=== PATIENT | female | born 1990 | race Caucasian/White ===

== ENCOUNTER 2019-02-28 12:54 | Inpatient (IN) ==
--- NOTE | 2019-02-28 13:03 | DR.GENAD ---
HPI Time Seen Time Seen by Provider: 02/28/19 13:02 HPI Comment HPI Comment: PATIENT IS 28YR OLD FEMALE [facility] HISTORY OF DM AND HYPERTENSION IN ER WITH INCREASING TACHYPNEA, TACHYCARDIA AND ELEVATED BLOOD PRESSURE. BLOOD GLUCOSE WAS HIGH AT HOME. SHE IS HAVING HEADACHE AND CHEST PAIN WELL. MOUTH IS DRY AND SHE IS THIRST. HAVING POLYURIA WELL. RECENTLY TESTED POSITIVE FOR LYMES DISEASE ANS WAS TREATED. Complaint/Symptoms Chief Complaint Doctors Comments: INCREASING RAPID BREATHING AND ELEVATED BP TIMES 2 DAYS. Chief Complaint:: PATIENT IS 28YR OLD FEMALE WITH Nurses notes reviewed Nurses Notes Review: Yes Source History Provided: Patient and Family Member Mode of Arrival Mode of Arrival: EMS Timing Came on: Suddenly Duration Duration: Constant Duration: Days Severity Severity: Severe Modifying Factors Worsens:: EXERTION Improves:: REST. Associated Signs and Symptoms Associated Signs and Symptoms: VOMITING. Other History Other History: DM, HTN. PMH PMH Past Medical History: Diabetes Past Surgical History: Yes Surgical History: and Cholecystectomy Family History Family Medical History: Hypertension Social History Do you use any recreational Drugs:: No infectious screening Isolation: Standard ROS Review of Systems Constitutional: No Symptoms Reported, See HPI, Weakness and Fatigue; negative Fever and Loss of Appetite Eyes: No Symptoms Reported and See HPI ENTM: No Symptoms Reported and See HPI Respiratoy: Short of Breath and Other (TACKYPNEA.) Cardiovascular: See HPI, Chest Pain and Palpitations Gastrointestinal/Abdominal: See HPI and Vomiting Genitourinary: No Symptoms Reported Neurological: See HPI, Headache, Weakness and Dizziness Musculoskeletal: See HPI and Muscle Pain Integumentary: See HPI, Change in Color and Dryness Hematologic/Lymphatic: No Symptoms Reported and See HPI; negative Easy Bleeding, Easy Bruising and Swollen Glands Endocrine: See HPI, Increased Thirst, Increased Urine and Decreased Appetite Psychiatric: No Symptoms Reported and See HPI All Other Systems: Reviewed and Negative PE Vital Signs Vitals: Temperature 97.2 F Pulse Rate 155 Respiratory Rate 30 Blood Pressure [Left Arm] 135/89 Blood Pressure 168/98 O2 Sat by Pulse Oximetry 100 General Limitations: No Limitations General Appearance: Alert and In Distress Head Head Exam: Normal Inspection and Atraumatic Eyes Eye exam: Normal Appearance and PERRL; negative Scleral Icterus and Conjunctival Injection ENT ENT Exam: Normal Exam; negative Normal Oropharynx, Normal External Ear Exam and TM's Normal Bilaterally External Ear Exam: Normal External Inspection; negative Mastoid Tenderness TM/Canal Exam: Bilateral: Normal Nose Exam: Normal Nose Exam Mouth Exam: Normal Inspection Throat Exam: Normal Inspection Neck Neck Exam: Normal Inspection and Trachea Midline; negative Tenderness and Lymphadenopathy Chest Chest Inspection: Normal Inspection and Symmetric Chest Wall Rise; negative Tenderness Respiratory Respiratory Exam: Normal Lung Sounds Bilat and Other (TACKYPNEA.); negative Accessory Muscle Use and Chest Wall Tenderness Respiratory Exam: Bilateral: Clear to Auscultation Abdominal Exam Abdominal Exam: Normal Inspection, Normal Bowel Sounds and Soft; negative Tender ness Extremities Extremities Exam: Normal Inspection Back Back Exam: Normal Inspection Neurologic Neurological Exam: Alert, Oriented X3 and CN II-XII Intact; negative Motor Sensory Deficit Skin Skin Exam: Dry MDM Additional Information Additional Information Obtained From: Family Differential Diagnosis Differential Diagnosis: DKA, HYPERTENSION. SEVERE DEHYDRATION, ELECTROLYTE DISTURBANCES, SEPSIS. COURSE Treatment Treatment: SEE ORDERS. Education/Counseling Education/Counseling: Patient and Family Educated On: Diagnosis ROR Labs Reviewed Laboratory Results Reviewed?: Yes Result Diagrams: 03/02/19 05:32 03/02/19 05:32 Laboratory: 02/28/19 16:14 Urine,Catheterized Urine Culture - Final 02/28/19 14:07 Blood Blood Culture - Preliminary 02/28/19 13:10 Blood Blood Culture - Preliminary WBC 18.7 X10^3/uL (3.6-10.0) H 02/28/19 13:10 RBC 5.78 X10^6/uL (3.5-5.4) H 02/28/19 13:10 Hgb 16.7 g/dL (12.0-16.0) H 02/28/19 13:10 Hct 53.3 % (36.0-47.0) H 02/28/19 13:10 MCV 92.2 fL (80.0-100.0) 02/28/19 13:10 MCH 28.9 pg (27.0-34.0) 02/28/19 13:10 MCHC 31.3 g/dL (33.0-35.0) L 02/28/19 13:10 RDW 15.1 % (11.6-16.5) 02/28/19 13:10 Plt Count 525 X10^3/uL (150.0-450.0) H 02/28/19 13:10 MPV 9.4 fL (7.4-11.0) 02/28/19 13:10 Neut % (Auto) 80.2 % (42.0-75.0) H 02/28/19 13:10 Lymph % (Auto) 14.5 % (21.0-51.0) L 02/28/19 13:10 [facility] % (Auto) 4.8 % (0.0-13.0) 02/28/19 13:10 Eos % (Auto) 0.1 % (0.9-2.9) L 02/28/19 13:10 Baso % (Auto) 0.4 % (0.2-1.0) 02/28/19 13:10 Neut # (Auto) 15.0 x10^3/uL (2.2-4.8) H 02/28/19 13:10 Lymph # (Auto) 2.7 X10^3/uL (1.3-2.9) 02/28/19 13:10 [facility] # (Auto) 0.9 x10^3/uL (0.3-0.8) H 02/28/19 13:10 Eos # (Auto) 0.0 x10^3/uL (0.0-0.2) 02/28/19 13:10 Baso # (Auto) 0.1 X10^3/uL (0.0-0.1) 02/28/19 13:10 Absolute Nucleated RBC 0.1 /100WBC 02/28/19 13:10 Sample Site Rra 02/28/19 21:45 ABG pH 7.160 (7.35-7.45) L* 02/28/19 21:45 ABG pCO2 8.0 mmHg (35.0-45.0) L* 02/28/19 21:45 ABG pO2 334.0 mmHg (80.0-100.0) H 02/28/19 21:45 ABG HCO3 < 3.0 mmol/L (22-26) L* 02/28/19 21:45 ABG O2 Saturation Not Reportable 02/28/19 21:45 ABG Base Excess Not Reportable 02/28/19 21:45 Sigifredo Test Pos 02/28/19 21:45 A-a Gradient 369.0 mmHg 02/28/19 21:45 FiO2 100.0 02/28/19 21:45 Blood Gas Comments Tolerated well pmt 02/28/19 21:45 Sodium 137 mmol/L (136-145) 02/28/19 16:36 Corrected Sodium 145 mmol/L (136-145) 02/28/19 16:36 Potassium 4.3 mmol/L (3.5-5.1) 02/28/19 16:36 Chloride 102 mmol/L (98-107) 02/28/19 16:36 Carbon Dioxide 7.0 mmol/L (21-32) L* 02/28/19 16:36 BUN 15 mg/dL (7-18) 02/28/19 16:36 Creatinine 1.04 mg/dL (0.55-1.02) H 02/28/19 16:36 Est GFR (MDRD) Af Amer > 60 (>60) 02/28/19 16:36 Est GFR (MDRD) Non-Af > 60 (>60) 02/28/19 16:36 Glucose 446 mg/dL (65-99) H 02/28/19 16:36 POC Glucose (mg/dL) 178 mg/dL (65-99) H 02/28/19 20:34 Lactic Acid 3.8 mmol/L (0.4-2.0) H 02/28/19 13:10 Calcium 8.6 mg/dL (8.5-10.1) 02/28/19 16:36 Corrected Calcium TNP 02/28/19 13:10 Total Bilirubin 0.30 mg/dL (0.2-1.0) 02/28/19 13:10 AST 18 Units/L (15-37) 02/28/19 13:10 ALT 25 Units/L (12-78) 02/28/19 13:10 Alkaline Phosphatase 153 Units/L (46-116) H 02/28/19 13:10 Creatine Kinase 48 Units/L (26-192) 02/28/19 13:10 CK-MB (CK-2) < 1.0 ng/mL (0-4.0) 02/28/19 13:10 CK/CKMB % Calc 2.1 % (<4) 02/28/19 13:10 Troponin I < 0.02 ng/mL (0-1.5) 02/28/19 13:10 Total Protein 10.1 g/dL (6.4-8.2) H 02/28/19 13:10 Albumin 4.7 g/dL (3.4-5.0) 02/28/19 13:10 Globulin 5.4 g/dL (2.5-4.5) H 02/28/19 13:10 Albumin/Globulin Ratio 0.9 Ratio (1.1-2.1) L 02/28/19 13:10 Specimen Type Random urine 02/28/19 14:49 Urine Color Yellow (YELLOW) 02/28/19 14:49 Urine Appearance Clear (CLEAR) 02/28/19 14:49 Urine pH 5.0 (5.0 - 8.0) 02/28/19 14:49 Ur Specific [place] 1.025 (1.000-1.030) 02/28/19 14:49 Urine Protein 3+ (NEGATIVE) 02/28/19 14:49 Urine Glucose (UA) 4+ (NEGATIVE) 02/28/19 14:49 Urine Ketones 4+ (NEGATIVE) 02/28/19 14:49 Urine Occult Blood 1+ (NEGATIVE) 02/28/19 14:49 Urine Nitrite Negative (NEGATIVE) 02/28/19 14:49 Urine Bilirubin Negative (NEGATIVE) 02/28/19 14:49 Urine Urobilinogen Normal (NORMAL) 02/28/19 14:49 Ur Leukocyte Esterase Negative (NEGATIVE) 02/28/19 14:49 Urine RBC 0-2 /HPF (0-3) 02/28/19 14:49 Urine WBC 0-2 /HPF (0-5) 02/28/19 14:49 Ur Squamous Epith Cells Few /HPF (NEGATIVE) 02/28/19 14:49 Urine Bacteria Trace /HPF (NEGATIVE) 02/28/19 14:49 Granular Casts Few /LPF (NEGATIVE) 02/28/19 14:49 Urine Mucus Few /HPF (NEGATIVE) 02/28/19 14:49 Ur Culture Indicated? No/not indicated 02/28/19 14:49 Acetone, Semi-Quant Small (NEGATIVE) H 02/28/19 13:10 XRAY XRAY Interpreted by: Radiologist XRAY Findings: REPORT NOTED AND DISCUSSED WITH PATIENT AND FAMILY. Opioid Opioid Risk Tool Total: 0 Total Score Risk Category: Low Risk Copyright: [facility] predicting aberrant behaviors Diagnosis Discharge Problem: Acidosis, Hypocapnia, Low bicarbonate level DKA (diabetic ketoacidoses) Qualifiers: Diabetes mellitus type: type 1 Diabetes mellitus complication detail: without coma Qualified Code(s): E10.10 - Type 1 diabetes mellitus with ketoacidosis without coma Hypertension Qualifiers: Hypertension type: essential hypertension Qualified Code(s): I10 - Essential (primary) hypertension ADDITIONAL NOTES Additional Notes Additional Notes: PATIENT IN DKA WITH SEVERE METABOLIC ACIDOSIS. BICARB LESS THAN 3 BY ABG AND PH LESS THAN 7.15. PATIENT IS ALERT AND ORIENTED. CONCERN EARLY SHOCK WITH VASOCONTRICTION. IV BICARB AND IV FLUIDS AND CHECKH ABG AND BICARB. CONTINUE MONITORING IN ER FOR SEVERAL HOURS TILL PH IMPROVED. PATIENT THEN TAKEN TO ICU FOR FURTHER MANAGEMENT.
[2019-02-28] MEDS ORDERED: ZOFRAN INJ 4 MG VIAL ONE (13:05)
[2019-02-28] MEDS ORDERED: ZOFRAN INJ 4 MG VIAL IVP ONE (13:05)
[2019-02-28] MEDS ORDERED: NS 1000 ML 1,000 ML ONE ×6 (13:16→21:00)
[2019-02-28 13:19] LABS: ABG HCO3 < 3.0 mmol/L (22-26)
[2019-02-28] MEDS: NS 1000 ML 1,000 ML IV ONE ×2 (13:27→14:54)
[2019-02-28 13:32] VITALS: BMI 36.1
[2019-02-28] MEDS ORDERED: SODIUM BICARBONATE 8.4% INJ ADULT IVP ONE ×7 (13:41→20:15)
[2019-02-28] MEDS ORDERED: SODIUM BICARBONATE 8.4% INJ ADULT ONE ×5 (13:47→21:39)
[2019-02-28 14:04] LABS: BASOPHILS # (AUTO) 0.1 X10^3/uL (0.0-0.1); BASOPHILS % (AUTO) 0.4 % (0.2-1.0); EOSINOPHILS % (AUTO) 0.1 % (0.9-2.9); HEMATOCRIT 53.3 % (36.0-47.0); LYMPHOCYTES # (AUTO) 2.7 X10^3/uL (1.3-2.9); LYMPHOCYTES % (AUTO) 14.5 % (21.0-51.0); MEAN CORPUSCULAR HEMOGLOBIN 28.9 pg (27.0-34.0); MEAN CORPUSCULAR HGB CONC 31.3 g/dL (33.0-35.0); MEAN CORPUSCULAR VOLUME 92.2 fL (80.0-100.0); MEAN PLATELET VOLUME 9.4 fL (7.4-11.0); MONOCYTES # (AUTO) 0.9 x10^3/uL (0.3-0.8); MONOCYTES % (AUTO) 4.8 % (0.0-13.0); NEUTROPHILS % (AUTO) 80.2 % (42.0-75.0); PLATELET COUNT 525 X10^3/uL (150.0-450.0); RED BLOOD COUNT 5.78 X10^6/uL (3.5-5.4); RED CELL DISTRIBUTION WIDTH 15.1 % (11.6-16.5); WHITE BLOOD COUNT 18.7 X10^3/uL (3.6-10.0)
[2019-02-28 14:20] LABS: HEMOGLOBIN 16.7 g/dL (12.0-16.0)
[2019-02-28 14:24] LABS: LACTIC ACID 3.8 mmol/L (0.4-2.0)
[2019-02-28 14:30] LABS: ALANINE AMINOTRANSFERASE 25 Units/L (12-78); ALBUMIN 4.7 g/dL (3.4-5.0); ALKALINE PHOSPHATASE 153 Units/L (46-116); ASPARTATE AMINO TRANSFERASE 18 Units/L (15-37); BLOOD UREA NITROGEN 16 mg/dL (7-18); CALCIUM 9.2 mg/dL (8.5-10.1); CHLORIDE 94 mmol/L (98-107); CKMB % 2.1 % (<4); COR NA(FOR HYPERGLY) 140 mmol/L (136-145); CREATINE KINASE 48 Units/L (26-192); CREATINE KINASE MB < 1.0 ng/mL (0-4.0); CREATININE 1.33 mg/dL (0.55-1.02); SODIUM 130 mmol/L (136-145); TOTAL PROTEIN 10.1 g/dL (6.4-8.2); TROPONIN I < 0.02 ng/mL (0-1.5); eGFR NON BLACK RACES 51 (>60)
[2019-02-28 14:37] LABS: SERUM ACETONE SMALL (NEGATIVE)
[2019-02-28] MEDS ORDERED: NS 1000 ML 1,000 ML IV ONE ×2 (14:55→18:01)
[2019-02-28 15:05] LABS: BILIRUBIN,URINE NEGATIVE (NEGATIVE); BLOOD/HEMOGLOBIN,URINE 1+ (NEGATIVE); GLUCOSE, URINE 4+ (NEGATIVE); KETONES,URINE 4+ (NEGATIVE); LEUKOCYTE ESTERASE ,URINE NEGATIVE (NEGATIVE); NITRITES,URINE NEGATIVE (NEGATIVE); PROTEIN,URINE 3+ (NEGATIVE); UROBILINOGEN,URINE NORMAL (NORMAL)
[2019-02-28 15:07] LABS: APPEARANCE,URINE CLEAR (CLEAR); COLOR,URINE YELLOW (YELLOW)
[2019-02-28 15:13] LABS: BACTERIA,URINE TRACE /HPF (NEGATIVE); MUCUS,URINE FEW /HPF (NEGATIVE); RBC,URINE 0-2 /HPF (0-3); SQUAMOUS EPITHELIAL CELL,UR FEW /HPF (NEGATIVE)
[2019-02-28 15:14] LABS: GRANULAR CASTS,URINE FEW /LPF (NEGATIVE)
[2019-02-28] MEDS ORDERED: TORADOL 30 MG VIAL ONE (15:17)
[2019-02-28] MEDS ORDERED: TORADOL 30 MG VIAL IVP ONE (15:20)
[2019-02-28] MEDS ORDERED: NS 100 ML IV 100 ML IV ONE (15:52)
[2019-02-28] MEDS ORDERED: HumuLIN R ONE (15:52)
[2019-02-28] MEDS ORDERED: NS 1000 ML 1,000 ML IV SCH (16:00)
[2019-02-28] MEDS ORDERED: MORPHINE SULFATE INJ 2 MG INJ ONE (16:41)
[2019-02-28] MEDS ORDERED: MORPHINE SULFATE INJ 2 MG INJ IVP ONE ×2 (16:44→16:45)
[2019-02-28 17:01] LABS: ABG ALLEN TEST POS; ABG HCO3 < 3.0 mmol/L (22-26)
[2019-02-28 17:04] LABS: BLOOD UREA NITROGEN 15 mg/dL (7-18); CALCIUM 8.6 mg/dL (8.5-10.1); CHLORIDE 102 mmol/L (98-107); COR NA(FOR HYPERGLY) 145 mmol/L (136-145); CREATININE 1.04 mg/dL (0.55-1.02); SODIUM 137 mmol/L (136-145); eGFR NON BLACK RACES > 60 (>60)
[2019-02-28 17:13] LABS: CARBON DIOXIDE 6.1 mmol/L (21-32)
[2019-02-28 18:09] LABS: ABG ALLEN TEST POS; ABG HCO3 < 3.0 mmol/L (22-26)
[2019-02-28] MEDS ORDERED: HumuLIN R IV ONE (18:38)
--- NOTE | 2019-02-28 19:15 | RAD ---
HISTORYblood sugar>500STUDYCHEST, 1 VIEWCOMPARISONJuly 2018FINDINGSThe trachea is midline. The cardiac silhouette is unremarkable . The lungs are clear without focal infiltrate or effusion.IMPRESSIONNo acute cardiopulmonary disease.Electronically signed by: ROBERT CRAWFORD (Feb 28, 2019 19:14:04)
[2019-02-28 19:50] LABS: ABG ALLEN TEST POS
[2019-02-28 22:02] LABS: ABG ALLEN TEST POS
[2019-03-01 00:37] LABS: BLOOD UREA NITROGEN 10 mg/dL (7-18); CALCIUM 7.6 mg/dL (8.5-10.1); CHLORIDE 107 mmol/L (98-107); CREATININE 0.83 mg/dL (0.55-1.02); SODIUM 141 mmol/L (136-145); eGFR NON BLACK RACES > 60 (>60)
[2019-03-01 00:49] LABS: CKMB % 1.5 % (<4); CREATINE KINASE 69 Units/L (26-192); CREATINE KINASE MB < 1.0 ng/mL (0-4.0); TROPONIN I 0.06 ng/mL (0-1.5)
[2019-03-01 00:53] LABS: SERUM ACETONE SMALL (NEGATIVE)
[2019-03-01] MEDS: SNACK - Diabetic Appropriate PO SCH ×4 (01:08→20:15)
[2019-03-01] MEDS: NS 1000 ML 1,000 ML with SODIUM BICARBONATE 8.4% INJ ADULT 100 ML IV SCH ×8 (01:09→20:56)
[2019-03-01] MEDS: NS + KCL 20 MEQ/L 1,000 ML IV SCH ×2 (01:10→01:20)
[2019-03-01] MEDS: HumuLIN R SUBCUT PRN ×2 (03:49→06:13)
[2019-03-01] MEDS ORDERED: TYLENOL 325 MG TAB PO ONE (03:53)
[2019-03-01 04:10] LABS: BLOOD UREA NITROGEN 8 mg/dL (7-18); CALCIUM 7.2 mg/dL (8.5-10.1); CHLORIDE 105 mmol/L (98-107); COR NA(FOR HYPERGLY) 141 mmol/L (136-145); CREATININE 0.85 mg/dL (0.55-1.02); SODIUM 139 mmol/L (136-145); eGFR NON BLACK RACES > 60 (>60)
[2019-03-01 04:12] LABS: CARBON DIOXIDE 7.4 mmol/L (21-32)
[2019-03-01 04:15] LABS: BASOPHILS % (AUTO) 0.1 % (0.2-1.0); HEMATOCRIT 43.8 % (36.0-47.0); LYMPHOCYTES # (AUTO) 1.4 X10^3/uL (1.3-2.9); MEAN CORPUSCULAR HEMOGLOBIN 28.1 pg (27.0-34.0); MEAN CORPUSCULAR HGB CONC 31.2 g/dL (33.0-35.0); MEAN CORPUSCULAR VOLUME 89.9 fL (80.0-100.0); MEAN PLATELET VOLUME 9.3 fL (7.4-11.0); MONOCYTES # (AUTO) 1.2 x10^3/uL (0.3-0.8); MONOCYTES % (AUTO) 6.9 % (0.0-13.0); NEUTROPHILS # (AUTO) 14.5 x10^3/uL (2.2-4.8); PLATELET COUNT 277 X10^3/uL (150.0-450.0); RED BLOOD COUNT 4.87 X10^6/uL (3.5-5.4); RED CELL DISTRIBUTION WIDTH 14.2 % (11.6-16.5)
[2019-03-01 04:16] LABS: HEMOGLOBIN 13.7 g/dL (12.0-16.0)
[2019-03-01 04:31] LABS: ABG HCO3 < 3.0 mmol/L (22-26)
[2019-03-01] MEDS: TYLENOL 325 MG TAB PO PRN ×2 (04:37→20:16)
[2019-03-01 05:20] LABS: BILIRUBIN,URINE NEGATIVE (NEGATIVE); BLOOD/HEMOGLOBIN,URINE 1+ (NEGATIVE); GLUCOSE, URINE 4+ (NEGATIVE); KETONES,URINE 4+ (NEGATIVE); LEUKOCYTE ESTERASE ,URINE NEGATIVE (NEGATIVE); NITRITES,URINE NEGATIVE (NEGATIVE); PROTEIN,URINE 2+ (NEGATIVE); UROBILINOGEN,URINE NORMAL (NORMAL)
[2019-03-01 05:29] LABS: APPEARANCE,URINE CLEAR (CLEAR); BACTERIA,URINE NEGATIVE /HPF (NEGATIVE); COLOR,URINE STRAW (YELLOW); RBC,URINE 0-2 /HPF (0-3); SQUAMOUS EPITHELIAL CELL,UR RARE /HPF (NEGATIVE)
[2019-03-01 08:18] LABS: ABG HCO3 < 3.0 mmol/L (22-26)
[2019-03-01 08:20] LABS: ABG HCO3 < 3.0 mmol/L (22-26)
[2019-03-01 08:31] LABS: BLOOD UREA NITROGEN 6 mg/dL (7-18); CALCIUM 7.4 mg/dL (8.5-10.1); CHLORIDE 105 mmol/L (98-107); COR NA(FOR HYPERGLY) 140 mmol/L (136-145); CREATININE 0.84 mg/dL (0.55-1.02); SODIUM 137 mmol/L (136-145); eGFR NON BLACK RACES > 60 (>60)
[2019-03-01 08:41] LABS: ABG BASE EXCESS -20.5 mmol/L (-2.0-2.0)
[2019-03-01 08:42] LABS: ABG HCO3 4.8 mmol/L (22-26)
--- NOTE | 2019-03-01 09:05 | DR.H&P ---
H&P History & Physical for Day of: H&P Date: 03/01/19 Chief Complaint Chief Complaint: SOB, weakness, N/V/D Allergies Allergies Allergy/AdvReac Type Severity Reaction Status Date / Time topiramate [From Topamax] Allergy Verified 09/20/18 16:26 History of Present Illness History of Present Illness: Ms. Poole is a 28y/o female with a PMH of uncontrolled Type 1 DM, HTN and obesity. She presented with SOB and weakness. She also reports having N/V/D for the past few days. She takes Novolog SSI and Tresiba 30 units at home. She states her blood glucose has been in the 300-400s at home. She sees Dr. Lugo in [place] and reports she was recently started on Tresiba. She reports being on medications for HTN but hasn't taken them in a while. In the ED, she was noted to be in DKA with elevated glucose and anion gap. ABG revealed severe metabolic acidosis, she received 6-7L of NS and was started on insulin drip protocol. She remained in the ED due to her acidosis worsening requiring several doses of Bicarb and then was started on Bicarb drip. She is currently not on the insulin drip due to blood glucose being below 200. Patient is on a non-rebreather, saturating 100%. She reports her breathing is shallow. She has not had any vomiting or diarrhea. Initial AB.01/7/129/<3, repeat pH6.88/7/133/<3, now 7.17/8/223/<3 ABG reviewed: shows gradual improved in her pH and Bicarb. Will re-start insulin drip protocol due to elevated Anion gap. Increase Bicarb drip to 200cc/hr. Switch to D5 1/2 NS with KCL at 125 cc. Repeat ABG and BMP in 4 hours, glucose checks every hour. Critical care time 30-74 mins spent examining patient, reviewing medical records and diagnostics and management in a critical patient. Past Medical History Past Medical History: Anxiety, Diabetes and Hypertension Additional Medical History: Obesity Past Surgical History Surgical History: and Cholecystectomy Family History Family Medical History: Diabetes Mellitus, Cancer and Hypertension Social History Does patient currently use any type of tobacco product: No Have you used tobacco products in the last 12 months: No Type of Tobacco Use: None Does any household member use tobacco: No Alcohol Use: None Drug Use: Prescription Drugs Medications Home Medications: topiramate [From Topamax] Allergy (Verified 09/20/18 16:26) Labs Result Diagrams: 03/01/19 03:45 03/01/19 08:04 Labs: Laboratory WBC 17.0 X10^3/uL (3.6-10.0) H 03/01/19 03:45 RBC 4.87 X10^6/uL (3.5-5.4) 03/01/19 03:45 Hgb 13.7 g/dL (12.0-16.0) D 03/01/19 03:45 Hct 43.8 % (36.0-47.0) 03/01/19 03:45 MCV 89.9 fL (80.0-100.0) 03/01/19 03:45 MCH 28.1 pg (27.0-34.0) 03/01/19 03:45 MCHC 31.2 g/dL (33.0-35.0) L 03/01/19 03:45 RDW 14.2 % (11.6-16.5) 03/01/19 03:45 Plt Count 277 X10^3/uL (150.0-450.0) 03/01/19 03:45 MPV 9.3 fL (7.4-11.0) 03/01/19 03:45 Neut % (Auto) 85.0 % (42.0-75.0) H 03/01/19 03:45 Lymph % (Auto) 8.0 % (21.0-51.0) L 03/01/19 03:45 [place] % (Auto) 6.9 % (0.0-13.0) 03/01/19 03:45 Eos % (Auto) 0.0 % (0.9-2.9) L 03/01/19 03:45 Baso % (Auto) 0.1 % (0.2-1.0) L 03/01/19 03:45 Neut # (Auto) 14.5 x10^3/uL (2.2-4.8) H 03/01/19 03:45 Lymph # (Auto) 1.4 X10^3/uL (1.3-2.9) 03/01/19 03:45 [place] # (Auto) 1.2 x10^3/uL (0.3-0.8) H 03/01/19 03:45 Eos # (Auto) 0.0 x10^3/uL (0.0-0.2) 03/01/19 03:45 Baso # (Auto) 0.0 X10^3/uL (0.0-0.1) 03/01/19 03:45 Absolute Nucleated RBC 0.1 /100WBC 03/01/19 03:45 Sample Site Lbra 03/01/19 08:33 ABG pH 7.210 (7.35-7.45) L 03/01/19 08:33 ABG pCO2 12.0 mmHg (35.0-45.0) L* 03/01/19 08:33 ABG pO2 259.0 mmHg (80.0-100.0) H 03/01/19 08:33 ABG HCO3 4.8 mmol/L (22-26) L* 03/01/19 08:33 ABG O2 Saturation 100.0 % (90-100) 03/01/19 08:33 ABG Base Excess -20.5 mmol/L (-2.0-2.0) L 03/01/19 08:33 Sigifredo Test N/a 03/01/19 08:33 A-a Gradient 47.0 mmHg 03/01/19 08:33 FiO2 45.0 03/01/19 08:33 Blood Gas Comments Pt chadd well elj 03/01/19 08:33 Sodium 137 mmol/L (136-145) 03/01/19 08:04 Corrected Sodium 140 mmol/L (136-145) 03/01/19 08:04 Potassium 3.6 mmol/L (3.5-5.1) 03/01/19 08:04 Chloride 105 mmol/L (98-107) 03/01/19 08:04 Carbon Dioxide 10.0 mmol/L (21-32) L* 03/01/19 08:04 BUN 6 mg/dL (7-18) L 03/01/19 08:04 Creatinine 0.84 mg/dL (0.55-1.02) 03/01/19 08:04 Est GFR (MDRD) Af Amer > 60 (>60) 03/01/19 08:04 Est GFR (MDRD) Non-Af > 60 (>60) 03/01/19 08:04 Glucose 240 mg/dL (65-99) H 03/01/19 08:04 POC Glucose (mg/dL) 229 mg/dL (65-99) H 03/01/19 08:33 Lactic Acid 3.8 mmol/L (0.4-2.0) H 02/28/19 13:10 Calcium 7.4 mg/dL (8.5-10.1) L 03/01/19 08:04 Corrected Calcium TNP 02/28/19 13:10 Total Bilirubin 0.30 mg/dL (0.2-1.0) 02/28/19 13:10 AST 18 Units/L (15-37) 02/28/19 13:10 ALT 25 Units/L (12-78) 02/28/19 13:10 Alkaline Phosphatase 153 Units/L (46-116) H 02/28/19 13:10 Creatine Kinase 69 Units/L (26-192) 03/01/19 00:03 CK-MB (CK-2) < 1.0 ng/mL (0-4.0) 03/01/19 00:03 CK/CKMB % Calc 1.5 % (<4) 03/01/19 00:03 Troponin I 0.06 ng/mL (0-1.5) 03/01/19 00:03 Total Protein 10.1 g/dL (6.4-8.2) H 02/28/19 13:10 Albumin 4.7 g/dL (3.4-5.0) 02/28/19 13:10 Globulin 5.4 g/dL (2.5-4.5) H 02/28/19 13:10 Albumin/Globulin Ratio 0.9 Ratio (1.1-2.1) L 02/28/19 13:10 Specimen Type Catherized urine 03/01/19 05:05 Urine Color Straw (YELLOW) 03/01/19 05:05 Urine Appearance Clear (CLEAR) 03/01/19 05:05 Urine pH 5.0 (5.0 - 8.0) 03/01/19 05:05 Ur Specific [place] 1.015 (1.000-1.030) 03/01/19 05:05 Urine Protein 2+ (NEGATIVE) 03/01/19 05:05 Urine Glucose (UA) 4+ (NEGATIVE) 03/01/19 05:05 Urine Ketones 4+ (NEGATIVE) 03/01/19 05:05 Urine Occult Blood 1+ (NEGATIVE) 03/01/19 05:05 Urine Nitrite Negative (NEGATIVE) 03/01/19 05:05 Urine Bilirubin Negative (NEGATIVE) 03/01/19 05:05 Urine Urobilinogen Normal (NORMAL) 03/01/19 05:05 Ur Leukocyte Esterase Negative (NEGATIVE) 03/01/19 05:05 Urine RBC 0-2 /HPF (0-3) 03/01/19 05:05 Urine WBC None seen /HPF (0-5) 03/01/19 05:05 Ur Squamous Epith Cells Rare /HPF (NEGATIVE) 03/01/19 05:05 Urine Bacteria Negative /HPF (NEGATIVE) 03/01/19 05:05 Granular Casts Few /LPF (NEGATIVE) 02/28/19 14:49 Urine Mucus Few /HPF (NEGATIVE) 02/28/19 14:49 Ur Culture Indicated? No/not indicated 03/01/19 05:05 Acetone, Semi-Quant Small (NEGATIVE) H 03/01/19 00:03 Review of Systems Constitutional: Weakness Eyes: No Symptoms Reported ENT: No Symptoms Reported Respiratory: Shortness of Breath Cardiovascular: No Symptoms Reported Gastrointestinal: Nausea, Vomiting and Diarrhea Genitourinary: No Symptoms Reported Musculoskeletal: No Symptoms Reported Skin: No Symptoms Reported Neurological: No Symptoms Reported Physical Exam Vital Signs: Temperature 98.1 F Pulse Rate 132 Respiratory Rate 18 Blood Pressure [Left Arm] 173/97 Blood Pressure 157/98 O2 Sat by Pulse Oximetry 100 Oriented: Normal Eyes: Normal Respiratory: Diminished Throughout Cardiovascular: Normal and Tachycardia Auscultation: Bowel Sounds: Normal Palpation: Normal Tenderness: Normal Skin: Normal Musculoskeletal: Normal Psychiatric: Normal Mood Description: Calm Affect: Normal; negative Violent Speech Pattern: Clear and Appropriate Assessment/Plan (1) DKA (diabetic ketoacidoses): Qualifiers: Diabetes mellitus complication detail: without coma Diabetes mellitus type: type 1 Qualified Code(s): E10.10 - Type 1 diabetes mellitus with ketoacidosis without coma Status: Acute Plan: restart insulin drip protocol, monitor blood glucose every one hour Switch to D51/2NS with KCL Follow BMP and ABG at 12 pm. (2) Metabolic acidosis due to diabetes mellitus: Status: Acute Plan: Increase bicarbonate to 200cc/hr Repeat ABG at 12 pm (3) Hypokalemia: Status: Acute Plan: replace as per protocol. Continue KCL in IVF (4) Hypertension: Qualifiers: Hypertension type: essential hypertension Qualified Code(s): I10 - Essential (primary) hypertension Status: Acute Review H&P Reviewed: Yes Patient was examined?: Yes
[2019-03-01] MEDS: D5 1/2 NS 1000 ML 1,000 ML with POTASSIUM CHLORIDE INJ 10 MEQ VIAL 10 MEQ IV SCH ×4 (10:08→18:13)
[2019-03-01 12:27] LABS: ABG BASE EXCESS -12.4 mmol/L (-2.0-2.0)
[2019-03-01 12:28] LABS: ABG ALLEN TEST POS; ABG HCO3 11.6 mmol/L (22-26)
[2019-03-01] MEDS: ZOFRAN INJ 4 MG VIAL IVP PRN ×2 (12:32→20:58)
[2019-03-01 12:38] LABS: BLOOD UREA NITROGEN 4 mg/dL (7-18); CALCIUM 7.7 mg/dL (8.5-10.1); CHLORIDE 107 mmol/L (98-107); COR NA(FOR HYPERGLY) 140 mmol/L (136-145); CREATININE 0.79 mg/dL (0.55-1.02); SODIUM 139 mmol/L (136-145); eGFR NON BLACK RACES > 60 (>60)
[2019-03-01 12:43] LABS: CARBON DIOXIDE 12.6 mmol/L (21-32)
[2019-03-01] MEDS ORDERED: POTASSIUM CHL 40 MEQ/NS 0.45% 500 ML IV ONE (13:05)
[2019-03-01] MEDS: TORADOL 15 MG VIAL IVP PRN (13:37)
[2019-03-01 17:47] LABS: BLOOD UREA NITROGEN 3 mg/dL (7-18); CALCIUM 7.8 mg/dL (8.5-10.1); CHLORIDE 107 mmol/L (98-107); COR NA(FOR HYPERGLY) 139 mmol/L (136-145); CREATININE 0.44 mg/dL (0.55-1.02); SODIUM 138 mmol/L (136-145); eGFR NON BLACK RACES > 60 (>60)
[2019-03-01 17:48] LABS: CARBON DIOXIDE 12.2 mmol/L (21-32)
[2019-03-01] MEDS ORDERED: NS 250 ML IV 250 ML IV PRN (19:39)
[2019-03-01] MEDS: MAGNESIUM SULFATE 1 GRAM/100 mL PREMIX 1 GM/100 ML BAG IV PRN ×2 (19:52→20:42)
[2019-03-01] MEDS: D5 1/2 NS + KCL 20 MEQ/L 1,000 ML IV SCH (19:52)
[2019-03-01 22:18] LABS: BLOOD UREA NITROGEN 3 mg/dL (7-18); CHLORIDE 104 mmol/L (98-107); COR NA(FOR HYPERGLY) 142 mmol/L (136-145); CREATININE 0.76 mg/dL (0.55-1.02); SODIUM 136 mmol/L (136-145); eGFR NON BLACK RACES > 60 (>60)
[2019-03-01 22:20] LABS: CARBON DIOXIDE 14.3 mmol/L (21-32)
[2019-03-01] MEDS: K-RIDER 10 MEQ/NS 100 ML 10 MEQ/100 ML BAG IV PRN (23:20)
[2019-03-02] MEDS: K-RIDER 10 MEQ/NS 100 ML 10 MEQ/100 ML BAG IV PRN ×3 (00:14→06:46)
[2019-03-02] MEDS: D5 1/2 NS + KCL 20 MEQ/L 1,000 ML IV SCH ×2 (03:54→13:20)
[2019-03-02] MEDS: NS 1000 ML 1,000 ML with SODIUM BICARBONATE 8.4% INJ ADULT 100 ML IV SCH ×4 (04:51→13:20)
[2019-03-02 06:23] LABS: BASOPHILS % (AUTO) 0.5 % (0.2-1.0); EOSINOPHILS # (AUTO) 0.1 x10^3/uL (0.0-0.2); HEMATOCRIT 41.7 % (36.0-47.0); LYMPHOCYTES # (AUTO) 1.8 X10^3/uL (1.3-2.9); LYMPHOCYTES % (AUTO) 25.4 % (21.0-51.0); MEAN CORPUSCULAR HEMOGLOBIN 28.8 pg (27.0-34.0); MEAN CORPUSCULAR HGB CONC 33.7 g/dL (33.0-35.0); MEAN CORPUSCULAR VOLUME 85.5 fL (80.0-100.0); MEAN PLATELET VOLUME 8.7 fL (7.4-11.0); MONOCYTES # (AUTO) 0.4 x10^3/uL (0.3-0.8); MONOCYTES % (AUTO) 6.3 % (0.0-13.0); NEUTROPHILS # (AUTO) 4.6 x10^3/uL (2.2-4.8); NEUTROPHILS % (AUTO) 65.8 % (42.0-75.0); PLATELET COUNT 275 X10^3/uL (150.0-450.0); RED BLOOD COUNT 4.88 X10^6/uL (3.5-5.4)
[2019-03-02 06:38] LABS: ALANINE AMINOTRANSFERASE 17 Units/L (12-78); ALBUMIN 3.1 g/dL (3.4-5.0); ALKALINE PHOSPHATASE 86 Units/L (46-116); ASPARTATE AMINO TRANSFERASE 14 Units/L (15-37); BLOOD UREA NITROGEN 2 mg/dL (7-18); CALCIUM 7.9 mg/dL (8.5-10.1); CARBON DIOXIDE 15.1 mmol/L (21-32); CHLORIDE 107 mmol/L (98-107); COR CA(FOR HYPOALB) 8.6 mg/dL (8.5-10.1); COR NA(FOR HYPERGLY) 141 mmol/L (136-145); CREATININE 0.64 mg/dL (0.55-1.02); SODIUM 137 mmol/L (136-145); eGFR NON BLACK RACES > 60 (>60)
[2019-03-02] MEDS ORDERED: SODIUM BICARBONATE 8.4% INJ ADULT IVP ONE (08:10)
--- NOTE | 2019-03-02 08:32 | PCM.PROG ---
Progress Note Progress Note for Day of Date of Exam: 03/02/19 Subjective Subjective: Patient seen at bedside, reports feeling better this morning. She is currently on the insulin drip as per protocol along with IVF. Her K has been low so that is being replaced. She still has elevated anion gap, will continue insulin drip and IVF, follow BMP closely for potassium. Will give an amp of bicarb today. Past Medical Family Social History Allergies: Allergies topiramate [From Topamax] Allergy (Verified 09/20/18 16:26) Vital Signs and I&O's Vital Signs: Temperature 97.6 F Pulse Rate 106 Respiratory Rate 15 Blood Pressure [Left Arm] 173/97 Blood Pressure 104/73 O2 Sat by Pulse Oximetry 100 Intake and Output: Intake & Output 02/27/19 02/28/19 03/01/19 03/02/19 23:59 23:59 23:59 23:59 Intake Total 6165 / 6165 1453 / 1453 Output Total 7250 / 7250 1200 / 1200 Balance -1085 / -1085 253 / 253 Physical Exam Oriented: Normal Eyes: Normal Respiratory: Diminished Cardiovascular: Normal and Tachycardia Auscultation: Bowel Sounds: Normal Tenderness: Normal Skin: Normal Musculoskeletal: Normal Psychiatric: Normal Mood Description: Calm Affect: Normal Speech Pattern: Clear and Appropriate Laboratory and Diagnostics Result Diagrams: 03/02/19 05:32 03/02/19 05:32 Labs: 02/28/19 14:07 Blood Blood Culture - Preliminary 02/28/19 13:10 Blood Blood Culture - Preliminary 02/28/19 16:14 Urine,Catheterized Urine Culture - Preliminary Laboratory WBC 7.0 X10^3/uL (3.6-10.0) D 03/02/19 05:32 RBC 4.88 X10^6/uL (3.5-5.4) 03/02/19 05:32 Hgb 14.0 g/dL (12.0-16.0) 03/02/19 05:32 Hct 41.7 % (36.0-47.0) 03/02/19 05:32 MCV 85.5 fL (80.0-100.0) 03/02/19 05:32 MCH 28.8 pg (27.0-34.0) 03/02/19 05:32 MCHC 33.7 g/dL (33.0-35.0) 03/02/19 05:32 RDW 14.0 % (11.6-16.5) 03/02/19 05:32 Plt Count 275 X10^3/uL (150.0-450.0) 03/02/19 05:32 MPV 8.7 fL (7.4-11.0) 03/02/19 05:32 Neut % (Auto) 65.8 % (42.0-75.0) 03/02/19 05:32 Lymph % (Auto) 25.4 % (21.0-51.0) 03/02/19 05:32 [place] % (Auto) 6.3 % (0.0-13.0) 03/02/19 05:32 Eos % (Auto) 2.0 % (0.9-2.9) 03/02/19 05:32 Baso % (Auto) 0.5 % (0.2-1.0) 03/02/19 05:32 Neut # (Auto) 4.6 x10^3/uL (2.2-4.8) 03/02/19 05:32 Lymph # (Auto) 1.8 X10^3/uL (1.3-2.9) 03/02/19 05:32 [place] # (Auto) 0.4 x10^3/uL (0.3-0.8) 03/02/19 05:32 Eos # (Auto) 0.1 x10^3/uL (0.0-0.2) 03/02/19 05:32 Baso # (Auto) 0.0 X10^3/uL (0.0-0.1) 03/02/19 05:32 Absolute Nucleated RBC 0.1 /100WBC 03/02/19 05:32 Sample Site Lr 03/01/19 12:20 ABG pH 7.330 (7.35-7.45) L 03/01/19 12:20 ABG pCO2 22.0 mmHg (35.0-45.0) L 03/01/19 12:20 ABG pO2 147.0 mmHg (80.0-100.0) H 03/01/19 12:20 ABG HCO3 11.6 mmol/L (22-26) L* 01/06/20 12:20 ABG O2 Saturation 99.0 % (90-100) 03/01/19 12:20 ABG Base Excess -12.4 mmol/L (-2.0-2.0) L 03/01/19 12:20 Sigifredo Test Pos 03/01/19 12:20 A-a Gradient 111.0 mmHg 03/01/19 12:20 FiO2 40.0 03/01/19 12:20 Blood Gas Comments Pt chadd well. cdn 03/01/19 12:20 Sodium 137 mmol/L (136-145) 03/02/19 05:32 Corrected Sodium 141 mmol/L (136-145) 03/02/19 05:32 Potassium 3.0 mmol/L (3.5-5.1) L* 03/02/19 05:32 Chloride 107 mmol/L (98-107) 03/02/19 05:32 Carbon Dioxide 15.1 mmol/L (21-32) L 03/02/19 05:32 BUN 2 mg/dL (7-18) L 03/02/19 05:32 Creatinine 0.64 mg/dL (0.55-1.02) 03/02/19 05:32 Est GFR (MDRD) Af Amer > 60 (>60) 03/02/19 05:32 Est GFR (MDRD) Non-Af > 60 (>60) 03/02/19 05:32 Glucose 251 mg/dL (65-99) H 03/02/19 05:32 POC Glucose (mg/dL) 221 mg/dL (65-99) H 03/02/19 07:37 Lactic Acid 1.7 mmol/L (0.4-2.0) 03/01/19 12:18 Calcium 7.9 mg/dL (8.5-10.1) L 03/02/19 05:32 Corrected Calcium 8.6 mg/dL (8.5-10.1) 03/02/19 05:32 Magnesium 2.1 mg/dL (1.7-2.9) 03/02/19 05:32 Total Bilirubin 0.40 mg/dL (0.2-1.0) 03/02/19 05:32 AST 14 Units/L (15-37) L 03/02/19 05:32 ALT 17 Units/L (12-78) 03/02/19 05:32 Alkaline Phosphatase 86 Units/L (46-116) 03/02/19 05:32 Creatine Kinase 69 Units/L (26-192) 03/01/19 00:03 CK-MB (CK-2) < 1.0 ng/mL (0-4.0) 03/01/19 00:03 CK/CKMB % Calc 1.5 % (<4) 03/01/19 00:03 Troponin I 0.06 ng/mL (0-1.5) 03/01/19 00:03 Total Protein 7.0 g/dL (6.4-8.2) 03/02/19 05:32 Albumin 3.1 g/dL (3.4-5.0) L 03/02/19 05:32 Globulin 3.9 g/dL (2.5-4.5) 03/02/19 05:32 Albumin/Globulin Ratio 0.8 Ratio (1.1-2.1) L 03/02/19 05:32 Specimen Type Catherized urine 03/01/19 05:05 Urine Color Straw (YELLOW) 03/01/19 05:05 Urine Appearance Clear (CLEAR) 03/01/19 05:05 Urine pH 5.0 (5.0 - 8.0) 03/01/19 05:05 Ur Specific [place] 1.015 (1.000-1.030) 03/01/19 05:05 Urine Protein 2+ (NEGATIVE) 03/01/19 05:05 Urine Glucose (UA) 4+ (NEGATIVE) 03/01/19 05:05 Urine Ketones 4+ (NEGATIVE) 03/01/19 05:05 Urine Occult Blood 1+ (NEGATIVE) 03/01/19 05:05 Urine Nitrite Negative (NEGATIVE) 03/01/19 05:05 Urine Bilirubin Negative (NEGATIVE) 03/01/19 05:05 Urine Urobilinogen Normal (NORMAL) 03/01/19 05:05 Ur Leukocyte Esterase Negative (NEGATIVE) 03/01/19 05:05 Urine RBC 0-2 /HPF (0-3) 03/01/19 05:05 Urine WBC None seen /HPF (0-5) 03/01/19 05:05 Ur Squamous Epith Cells Rare /HPF (NEGATIVE) 03/01/19 05:05 Urine Bacteria Negative /HPF (NEGATIVE) 03/01/19 05:05 Granular Casts Few /LPF (NEGATIVE) 02/28/19 14:49 Urine Mucus Few /HPF (NEGATIVE) 02/28/19 14:49 Ur Culture Indicated? No/not indicated 03/01/19 05:05 Acetone, Semi-Quant Small (NEGATIVE) H 03/01/19 00:03 Plan (1) DKA (diabetic ketoacidoses): Status: Acute Qualifiers: Diabetes mellitus complication detail: without coma Diabetes mellitus type: type 1 Qualified Code(s): E10.10 - Type 1 diabetes mellitus with ketoacidosis without coma Plan: Continue insulin drip protocol, monitor blood glucose every one hour Continue D51/2NS with KCL Continue replacing K Anion gap still elevated at 19, will give one amp of bicarb (2) Metabolic acidosis due to diabetes mellitus: Status: Acute Plan: Improving, bicarb trending up. Continue insulin drip until acidosis resolves. (3) Hypokalemia: Status: Acute Plan: replace as per protocol. Continue KCL in IVF (4) Hypertension: Status: Acute Qualifiers: Hypertension type: essential hypertension Qualified Code(s): I10 - Essential (primary) hypertension (5) Hypomagnesemia: Status: Acute Plan: replace as per protocol
[2019-03-02] MEDS: PriLOSEC PO SCH (08:53)
[2019-03-02] MEDS: TORADOL 15 MG VIAL IVP PRN (09:16)
[2019-03-02] MEDS: ZOFRAN INJ 4 MG VIAL IVP PRN ×2 (09:17→16:50)
[2019-03-02] MEDS: NS + KCL 40 MEQ/L 1,000 ML IV SCH ×2 (10:35→18:14)
[2019-03-02 11:58] LABS: BLOOD UREA NITROGEN 2 mg/dL (7-18); CALCIUM 7.8 mg/dL (8.5-10.1); CHLORIDE 105 mmol/L (98-107); COR NA(FOR HYPERGLY) 142 mmol/L (136-145); CREATININE 0.61 mg/dL (0.55-1.02); SODIUM 138 mmol/L (136-145); eGFR NON BLACK RACES > 60 (>60)
[2019-03-02 18:12] LABS: BLOOD UREA NITROGEN 3 mg/dL (7-18); CALCIUM 8.1 mg/dL (8.5-10.1); CARBON DIOXIDE 20.5 mmol/L (21-32); CHLORIDE 106 mmol/L (98-107); COR NA(FOR HYPERGLY) 142 mmol/L (136-145); SODIUM 139 mmol/L (136-145); eGFR NON BLACK RACES > 60 (>60)
[2019-03-02] MEDS: SNACK - Diabetic Appropriate PO SCH (19:52)
[2019-03-02] MEDS: BUSPAR PO SCH (20:26)
[2019-03-02] MEDS: EFFEXOR XR 150 MG CAP PO SCH (20:26)
[2019-03-03] MEDS: ZOFRAN INJ 4 MG VIAL IVP PRN (01:02)
[2019-03-03] MEDS: NS + KCL 40 MEQ/L 1,000 ML IV SCH (02:17)
[2019-03-03 06:17] LABS: BASOPHILS % (AUTO) 0.8 % (0.2-1.0); EOSINOPHILS # (AUTO) 0.1 x10^3/uL (0.0-0.2); EOSINOPHILS % (AUTO) 1.9 % (0.9-2.9); HEMATOCRIT 37.6 % (36.0-47.0); HEMOGLOBIN 12.6 g/dL (12.0-16.0); LYMPHOCYTES # (AUTO) 1.7 X10^3/uL (1.3-2.9); LYMPHOCYTES % (AUTO) 29.3 % (21.0-51.0); MEAN CORPUSCULAR HEMOGLOBIN 28.4 pg (27.0-34.0); MEAN CORPUSCULAR HGB CONC 33.5 g/dL (33.0-35.0); MEAN CORPUSCULAR VOLUME 84.9 fL (80.0-100.0); MEAN PLATELET VOLUME 8.7 fL (7.4-11.0); MONOCYTES # (AUTO) 0.4 x10^3/uL (0.3-0.8); MONOCYTES % (AUTO) 6.8 % (0.0-13.0); NEUTROPHILS # (AUTO) 3.6 x10^3/uL (2.2-4.8); NEUTROPHILS % (AUTO) 61.2 % (42.0-75.0); PLATELET COUNT 267 X10^3/uL (150.0-450.0); RED BLOOD COUNT 4.43 X10^6/uL (3.5-5.4); RED CELL DISTRIBUTION WIDTH 13.7 % (11.6-16.5); WHITE BLOOD COUNT 5.9 X10^3/uL (3.6-10.0)
[2019-03-03 07:06] LABS: ALANINE AMINOTRANSFERASE 17 Units/L (12-78); ALBUMIN 3.1 g/dL (3.4-5.0); ALKALINE PHOSPHATASE 77 Units/L (46-116); ASPARTATE AMINO TRANSFERASE 11 Units/L (15-37); BLOOD UREA NITROGEN 2 mg/dL (7-18); CARBON DIOXIDE 20.9 mmol/L (21-32); CHLORIDE 104 mmol/L (98-107); COR CA(FOR HYPOALB) 8.7 mg/dL (8.5-10.1); COR NA(FOR HYPERGLY) 142 mmol/L (136-145); CREATININE 0.52 mg/dL (0.55-1.02); MAGNESIUM 1.8 mg/dL (1.7-2.9); SODIUM 139 mmol/L (136-145); TOTAL PROTEIN 6.7 g/dL (6.4-8.2); eGFR NON BLACK RACES > 60 (>60)
--- NOTE | 2019-03-03 08:33 | PCM.PROG ---
Progress Note Progress Note for Day of Date of Exam: 03/03/19 Subjective Subjective: Patient seen at bedside, reports feeling better, slept well. She has been eating well. She reports diarrhea since yesterday 3 loose BM's, no blood. Patient is still on the insulin drip, K: 2.7, NS with KCL. Will DC insulin drip due to improvement in her acidosis. Start Lantus 15 units, continue IV potassium replacement as well as 40 mEQ PO BID. Will recheck BMP later this evening. Remove dolan. Patient can be transferred out of ICU. Past Medical Family Social History Past Med/Fam/Surg Hx: No changes since H&P Allergies: Allergies topiramate [From Topamax] Allergy (Verified 09/20/18 16:26) Review of Systems ROS: No change since H&P Vital Signs and I&O's Vital Signs: Temperature 98.2 F Pulse Rate 95 Respiratory Rate 16 Blood Pressure [Left Arm] 173/97 Blood Pressure 131/80 O2 Sat by Pulse Oximetry 100 Intake and Output: Intake & Output 02/28/19 03/01/19 03/02/19 03/03/19 23:59 23:59 23:59 23:59 Intake Total 6165 / 6165 5214 / 5214 877 / 877 Output Total 7250 / 7250 5100 / 5100 650 / 650 Balance -1085 / -1085 114 / 114 227 / 227 Physical Exam Oriented: Normal Eyes: Normal Respiratory: Diminished Cardiovascular: Normal : Other (erythema and yeast infection noted in the groin jorge vaginal area) Auscultation: Bowel Sounds: Normal Tenderness: Normal Skin: Normal Musculoskeletal: Normal Psychiatric: Normal Mood Description: Calm Affect: Normal Speech Pattern: Clear and Appropriate Laboratory and Diagnostics Result Diagrams: 03/03/19 05:44 03/03/19 05:44 Labs: 02/28/19 16:14 Urine,Catheterized Urine Culture - Final 02/28/19 14:07 Blood Blood Culture - Preliminary 02/28/19 13:10 Blood Blood Culture - Preliminary Laboratory WBC 5.9 X10^3/uL (3.6-10.0) 03/03/19 05:44 RBC 4.43 X10^6/uL (3.5-5.4) 03/03/19 05:44 Hgb 12.6 g/dL (12.0-16.0) 03/03/19 05:44 Hct 37.6 % (36.0-47.0) 03/03/19 05:44 MCV 84.9 fL (80.0-100.0) 03/03/19 05:44 MCH 28.4 pg (27.0-34.0) 03/03/19 05:44 MCHC 33.5 g/dL (33.0-35.0) 03/03/19 05:44 RDW 13.7 % (11.6-16.5) 03/03/19 05:44 Plt Count 267 X10^3/uL (150.0-450.0) 03/03/19 05:44 MPV 8.7 fL (7.4-11.0) 03/03/19 05:44 Neut % (Auto) 61.2 % (42.0-75.0) 03/03/19 05:44 Lymph % (Auto) 29.3 % (21.0-51.0) 03/03/19 05:44 [place] % (Auto) 6.8 % (0.0-13.0) 03/03/19 05:44 Eos % (Auto) 1.9 % (0.9-2.9) 03/03/19 05:44 Baso % (Auto) 0.8 % (0.2-1.0) 03/03/19 05:44 Neut # (Auto) 3.6 x10^3/uL (2.2-4.8) 03/03/19 05:44 Lymph # (Auto) 1.7 X10^3/uL (1.3-2.9) 03/03/19 05:44 [place] # (Auto) 0.4 x10^3/uL (0.3-0.8) 03/03/19 05:44 Eos # (Auto) 0.1 x10^3/uL (0.0-0.2) 03/03/19 05:44 Baso # (Auto) 0.0 X10^3/uL (0.0-0.1) 03/03/19 05:44 Absolute Nucleated RBC 0.0 /100WBC 03/03/19 05:44 Sample Site Lr 03/01/19 12:20 ABG pH 7.330 (7.35-7.45) L 03/01/19 12:20 ABG pCO2 22.0 mmHg (35.0-45.0) L 03/01/19 12:20 ABG pO2 147.0 mmHg (80.0-100.0) H 03/01/19 12:20 ABG HCO3 11.6 mmol/L (22-26) L* 03/01/19 12:20 ABG O2 Saturation 99.0 % (90-100) 03/01/19 12:20 ABG Base Excess -12.4 mmol/L (-2.0-2.0) L 03/01/19 12:20 Sigifredo Test Pos 03/01/19 12:20 A-a Gradient 111.0 mmHg 03/01/19 12:20 FiO2 40.0 03/01/19 12:20 Blood Gas Comments Pt chadd well. cdn 03/01/19 12:20 Sodium 139 mmol/L (136-145) 03/03/19 05:44 Corrected Sodium 142 mmol/L (136-145) 03/03/19 05:44 Potassium 2.7 mmol/L (3.5-5.1) L* 03/03/19 05:44 Chloride 104 mmol/L (98-107) 03/03/19 05:44 Carbon Dioxide 20.9 mmol/L (21-32) L 03/03/19 05:44 BUN 2 mg/dL (7-18) L 03/03/19 05:44 Creatinine 0.52 mg/dL (0.55-1.02) L 03/03/19 05:44 Est GFR (MDRD) Af Amer > 60 (>60) 03/03/19 05:44 Est GFR (MDRD) Non-Af > 60 (>60) 03/03/19 05:44 Glucose 206 mg/dL (65-99) H 03/03/19 05:44 POC Glucose (mg/dL) 180 mg/dL (65-99) H 03/03/19 06:40 Hemoglobin A1c 10.7 % 03/02/19 06:37 Lactic Acid 1.7 mmol/L (0.4-2.0) 03/01/19 12:18 Calcium 8.0 mg/dL (8.5-10.1) L 03/03/19 05:44 Corrected Calcium 8.7 mg/dL (8.5-10.1) 03/03/19 05:44 Magnesium 1.8 mg/dL (1.7-2.9) 03/03/19 05:44 Total Bilirubin 0.40 mg/dL (0.2-1.0) 03/03/19 05:44 AST 11 Units/L (15-37) L 03/03/19 05:44 ALT 17 Units/L (12-78) 03/03/19 05:44 Alkaline Phosphatase 77 Units/L (46-116) 03/03/19 05:44 Creatine Kinase 69 Units/L (26-192) 03/01/19 00:03 CK-MB (CK-2) < 1.0 ng/mL (0-4.0) 03/01/19 00:03 CK/CKMB % Calc 1.5 % (<4) 03/01/19 00:03 Troponin I 0.06 ng/mL (0-1.5) 03/01/19 00:03 Total Protein 6.7 g/dL (6.4-8.2) 03/03/19 05:44 Albumin 3.1 g/dL (3.4-5.0) L 03/03/19 05:44 Globulin 3.6 g/dL (2.5-4.5) 03/03/19 05:44 Albumin/Globulin Ratio 0.9 Ratio (1.1-2.1) L 03/03/19 05:44 Specimen Type Catherized urine 03/01/19 05:05 Urine Color Straw (YELLOW) 03/01/19 05:05 Urine Appearance Clear (CLEAR) 03/01/19 05:05 Urine pH 5.0 (5.0 - 8.0) 03/01/19 05:05 Ur Specific [place] 1.015 (1.000-1.030) 03/01/19 05:05 Urine Protein 2+ (NEGATIVE) 03/01/19 05:05 Urine Glucose (UA) 4+ (NEGATIVE) 03/01/19 05:05 Urine Ketones 4+ (NEGATIVE) 03/01/19 05:05 Urine Occult Blood 1+ (NEGATIVE) 03/01/19 05:05 Urine Nitrite Negative (NEGATIVE) 03/01/19 05:05 Urine Bilirubin Negative (NEGATIVE) 03/01/19 05:05 Urine Urobilinogen Normal (NORMAL) 03/01/19 05:05 Ur Leukocyte Esterase Negative (NEGATIVE) 03/01/19 05:05 Urine RBC 0-2 /HPF (0-3) 03/01/19 05:05 Urine WBC None seen /HPF (0-5) 03/01/19 05:05 Ur Squamous Epith Cells Rare /HPF (NEGATIVE) 03/01/19 05:05 Urine Bacteria Negative /HPF (NEGATIVE) 03/01/19 05:05 Granular Casts Few /LPF (NEGATIVE) 02/28/19 14:49 Urine Mucus Few /HPF (NEGATIVE) 02/28/19 14:49 Ur Culture Indicated? No/not indicated 03/01/19 05:05 Acetone, Semi-Quant Small (NEGATIVE) H 03/01/19 00:03 Plan (1) DKA (diabetic ketoacidoses): Status: Acute Qualifiers: Diabetes mellitus complication detail: without coma Diabetes mellitus type: type 1 Qualified Code(s): E10.10 - Type 1 diabetes mellitus with ketoacidosis without coma Plan: Anion gap improved, bicarb trending up. Will start Lantus 15 units a nd overlap with insulin drip for an hour and then stop drip. Continue IVF with KCL (2) Metabolic acidosis due to diabetes mellitus: Status: Acute Plan: Improving, bicarb trending up. (3) Hypokalemia: Status: Acute Plan: Continue KCL in IVF Start PO K 40mEQ BID Repeat BMP this evening (4) Hypertension: Status: Acute Qualifiers: Hypertension type: essential hypertension Qualified Code(s): I10 - Essential (primary) hypertension (5) Hypomagnesemia: Status: Acute Plan: replace as per protocol (6) Skin yeast infection: Status: Acute Plan: Add nystatin powder
[2019-03-03] MEDS: BUSPAR PO SCH ×2 (08:45→20:34)
[2019-03-03] MEDS: K-DUR TAB 20 MEQ PO SCH ×2 (08:46→20:33)
[2019-03-03] MEDS: PriLOSEC PO SCH (08:46)
[2019-03-03] MEDS: EFFEXOR XR 150 MG CAP PO SCH (08:46)
[2019-03-03] MEDS ORDERED: LANTUS SC SCH (09:00)
[2019-03-03] MEDS ORDERED: NS + KCL 40 MEQ/L 1,000 ML IV SCH (09:00)
[2019-03-03] MEDS: NYSTATIN POWDER TOP SCH ×2 (09:20→20:34)
[2019-03-03] MEDS ORDERED: POTASSIUM CHL 40 MEQ/NS 0.45% 500 ML IV PRN (09:45)
[2019-03-03 16:09] LABS: BLOOD UREA NITROGEN 3 mg/dL (7-18); CALCIUM 8.3 mg/dL (8.5-10.1); CHLORIDE 101 mmol/L (98-107); COR NA(FOR HYPERGLY) 142 mmol/L (136-145); CREATININE 0.62 mg/dL (0.55-1.02); SODIUM 135 mmol/L (136-145); eGFR NON BLACK RACES > 60 (>60)
[2019-03-03 16:11] LABS: CARBON DIOXIDE 11.9 mmol/L (21-32)
[2019-03-03] MEDS ORDERED: NS 1000 ML 1,000 ML ONE (16:37)
[2019-03-03] MEDS: HumuLIN R SC PRN ×3 (16:45→19:44)
[2019-03-03] MEDS: NS 1000 ML 1,000 ML IV SCH (16:58)
[2019-03-03] MEDS ORDERED: NS 1000 ML 1,000 ML IV ONE (17:47)
[2019-03-03 19:15] LABS: BLOOD UREA NITROGEN 3 mg/dL (7-18); CALCIUM 7.9 mg/dL (8.5-10.1); CHLORIDE 104 mmol/L (98-107); COR NA(FOR HYPERGLY) 142 mmol/L (136-145); CREATININE 0.67 mg/dL (0.55-1.02); SODIUM 137 mmol/L (136-145); eGFR NON BLACK RACES > 60 (>60)
[2019-03-03 19:21] LABS: CARBON DIOXIDE 14.2 mmol/L (21-32)
[2019-03-03] MEDS ORDERED: SNACK - Diabetic Appropriate PO SCH (20:00)
[2019-03-03] MEDS: SNACK - Diabetic Appropriate PO SCH (20:11)
[2019-03-03] MEDS ORDERED: HumuLIN R SUBCUT ONE (22:49)
[2019-03-04] MEDS: NS 1000 ML 1,000 ML IV SCH ×3 (01:24→17:00)
[2019-03-04 06:08] LABS: BASOPHILS # (AUTO) 0.1 X10^3/uL (0.0-0.1); EOSINOPHILS # (AUTO) 0.1 x10^3/uL (0.0-0.2); HEMATOCRIT 37.4 % (36.0-47.0); HEMOGLOBIN 12.3 g/dL (12.0-16.0); LYMPHOCYTES # (AUTO) 2.5 X10^3/uL (1.3-2.9); LYMPHOCYTES % (AUTO) 36.7 % (21.0-51.0); MEAN CORPUSCULAR HEMOGLOBIN 28.4 pg (27.0-34.0); MEAN CORPUSCULAR HGB CONC 32.9 g/dL (33.0-35.0); MEAN CORPUSCULAR VOLUME 86.4 fL (80.0-100.0); MEAN PLATELET VOLUME 8.7 fL (7.4-11.0); MONOCYTES # (AUTO) 0.4 x10^3/uL (0.3-0.8); MONOCYTES % (AUTO) 5.9 % (0.0-13.0); NEUTROPHILS # (AUTO) 3.7 x10^3/uL (2.2-4.8); NEUTROPHILS % (AUTO) 54.4 % (42.0-75.0); PLATELET COUNT 259 X10^3/uL (150.0-450.0); RED BLOOD COUNT 4.33 X10^6/uL (3.5-5.4); RED CELL DISTRIBUTION WIDTH 14.1 % (11.6-16.5); WHITE BLOOD COUNT 6.8 X10^3/uL (3.6-10.0)
[2019-03-04 06:19] LABS: ALANINE AMINOTRANSFERASE 17 Units/L (12-78); ALKALINE PHOSPHATASE 91 Units/L (46-116); ASPARTATE AMINO TRANSFERASE 8 Units/L (15-37); BLOOD UREA NITROGEN 5 mg/dL (7-18); CALCIUM 8.1 mg/dL (8.5-10.1); CHLORIDE 105 mmol/L (98-107); COR CA(FOR HYPOALB) 8.9 mg/dL (8.5-10.1); COR NA(FOR HYPERGLY) 142 mmol/L (136-145); CREATININE 0.65 mg/dL (0.55-1.02); MAGNESIUM 1.7 mg/dL (1.7-2.9); SODIUM 137 mmol/L (136-145); TOTAL PROTEIN 6.7 g/dL (6.4-8.2); eGFR NON BLACK RACES > 60 (>60)
[2019-03-04 06:27] LABS: CARBON DIOXIDE 14.8 mmol/L (21-32)
[2019-03-04] MEDS ORDERED: NS 1000 ML 1,000 ML IV ONE ×2 (07:24→20:48)
[2019-03-04] MEDS ORDERED: IMODIUM CAP 2 MG PO PRN (08:58)
--- NOTE | 2019-03-04 08:58 | PCM.PROG ---
Progress Note Progress Note for Day of Date of Exam: 03/04/19 Subjective Subjective: Patient seen at bedside, reports feeling better. She still hasn't been eating much, reports indigestion. Denies N/V, does have diarrhea 2 BMs yesterday. She states it's normal for her to have diarrhea. Her BG's have been in the 300s. She was transitioned from insulin drip to SC yesterday. She received lantus 10 units followed by SSI. Her Bicarb was noted to be low again in the evening, she was given additional fluids and insulin. Her blood glucose was monitored every hour and she received a total of 20 units of regular insulin. Labs this morning: K-3.1, bicarb trending up. Will increase lantus to 25 units and continue SSI with meals. Patient has not been eating much due to the diet and would like to change her meal choices. Discussed that with her in detail and will make diet changes. Continue close monitoring of her blood sugars. Past Medical Family Social History Past Med/Fam/Surg Hx: No changes since H&P Allergies: Allergies topiramate [From Topamax] Allergy (Verified 09/20/18 16:26) Review of Systems ROS: No change since H&P Vital Signs and I&O's Vital Signs: Temperature 98.3 F Pulse Rate [Left Brachial] 107 Pulse Rate 107 Respiratory Rate 18 Blood Pressure [Left Arm] 124/82 Blood Pressure 122/84 O2 Sat by Pulse Oximetry 100 Intake and Output: Intake & Output 03/01/19 03/02/19 03/03/19 03/04/19 23:59 23:59 23:59 23:59 Intake Total 6165 / 6165 5214 / 5214 2667 / 2667 100 / 100 Output Total 7250 / 7250 5100 / 5100 1250 / 1250 Balance -1085 / -1085 114 / 114 1417 / 1417 100 / 100 Physical Exam Oriented: Normal Eyes: Normal Respiratory: Normal Cardiovascular: Normal : Other (erythema and yeast infection noted in the groin jorge vaginal area) Auscultation: Bowel Sounds: Normal Tenderness: Normal Skin: Normal Musculoskeletal: Normal Psychiatric: Normal Mood Description: Calm Affect: Normal Speech Pattern: Appropriate Laboratory and Diagnostics Result Diagrams: 03/04/19 05:23 03/04/19 05:23 Labs: 02/28/19 16:14 Urine,Catheterized Urine Culture - Final 02/28/19 14:07 Blood Blood Culture - Preliminary 02/28/19 13:10 Blood Blood Culture - Preliminary Laboratory WBC 6.8 X10^3/uL (3.6-10.0) 03/04/19 05:23 RBC 4.33 X10^6/uL (3.5-5.4) 03/04/19 05:23 Hgb 12.3 g/dL (12.0-16.0) 03/04/19 05:23 Hct 37.4 % (36.0-47.0) 03/04/19 05:23 MCV 86.4 fL (80.0-100.0) 03/04/19 05:23 MCH 28.4 pg (27.0-34.0) 03/04/19 05:23 MCHC 32.9 g/dL (33.0-35.0) L 03/04/19 05:23 RDW 14.1 % (11.6-16.5) 03/04/19 05:23 Plt Count 259 X10^3/uL (150.0-450.0) 03/04/19 05:23 MPV 8.7 fL (7.4-11.0) 03/04/19 05:23 Neut % (Auto) 54.4 % (42.0-75.0) 03/04/19 05:23 Lymph % (Auto) 36.7 % (21.0-51.0) 03/04/19 05:23 [place] % (Auto) 5.9 % (0.0-13.0) 03/04/19 05:23 Eos % (Auto) 2.0 % (0.9-2.9) 03/04/19 05:23 Baso % (Auto) 1.0 % (0.2-1.0) 03/04/19 05:23 Neut # (Auto) 3.7 x10^3/uL (2.2-4.8) 03/04/19 05:23 Lymph # (Auto) 2.5 X10^3/uL (1.3-2.9) 03/04/19 05:23 [place] # (Auto) 0.4 x10^3/uL (0.3-0.8) 03/04/19 05:23 Eos # (Auto) 0.1 x10^3/uL (0.0-0.2) 03/04/19 05:23 Baso # (Auto) 0.1 X10^3/uL (0.0-0.1) 03/04/19 05:23 Absolute Nucleated RBC 0.0 /100WBC 03/04/19 05:23 Sample Site Lr 03/01/19 12:20 ABG pH 7.330 (7.35-7.45) L 03/01/19 12:20 ABG pCO2 22.0 mmHg (35.0-45.0) L 03/01/19 12:20 ABG pO2 147.0 mmHg (80.0-100.0) H 03/01/19 12:20 ABG HCO3 11.6 mmol/L (22-26) L* 03/01/19 12:20 ABG O2 Saturation 99.0 % (90-100) 03/01/19 12:20 ABG Base Excess -12.4 mmol/L (-2.0-2.0) L 03/01/19 12:20 Sigifredo Test Pos 03/01/19 12:20 A-a Gradient 111.0 mmHg 03/01/19 12:20 FiO2 40.0 03/01/19 12:20 Blood Gas Comments Pt chadd well. cdn 03/01/19 12:20 Sodium 137 mmol/L (136-145) 03/04/19 05:23 Corrected Sodium 142 mmol/L (136-145) 03/04/19 05:23 Potassium 3.1 mmol/L (3.5-5.1) L 03/04/19 05:23 Chloride 105 mmol/L (98-107) 03/04/19 05:23 Carbon Dioxide 14.8 mmol/L (21-32) L* 03/04/19 05:23 BUN 5 mg/dL (7-18) L 03/04/19 05:23 Creatinine 0.65 mg/dL (0.55-1.02) 03/04/19 05:23 Est GFR (MDRD) Af Amer > 60 (>60) 03/04/19 05:23 Est GFR (MDRD) Non-Af > 60 (>60) 03/04/19 05:23 Glucose 295 mg/dL (65-99) H 03/04/19 05:23 POC Glucose (mg/dL) 274 mg/dL (65-99) H 03/04/19 05:03 Hemoglobin A1c 10.7 % 03/02/19 06:37 Lactic Acid 1.7 mmol/L (0.4-2.0) 03/01/19 12:18 Calcium 8.1 mg/dL (8.5-10.1) L 03/04/19 05:23 Corrected Calcium 8.9 mg/dL (8.5-10.1) 03/04/19 05:23 Magnesium 1.7 mg/dL (1.7-2.9) 03/04/19 05:23 Total Bilirubin 0.40 mg/dL (0.2-1.0) 03/04/19 05:23 AST 8 Units/L (15-37) L 03/04/19 05:23 ALT 17 Units/L (12-78) 03/04/19 05:23 Alkaline Phosphatase 91 Units/L (46-116) 03/04/19 05:23 Creatine Kinase 69 Units/L (26-192) 03/01/19 00:03 CK-MB (CK-2) < 1.0 ng/mL (0-4.0) 03/01/19 00:03 CK/CKMB % Calc 1.5 % (<4) 03/01/19 00:03 Troponin I 0.06 ng/mL (0-1.5) 03/01/19 00:03 Total Protein 6.7 g/dL (6.4-8.2) 03/04/19 05:23 Albumin 3.0 g/dL (3.4-5.0) L 03/04/19 05:23 Globulin 3.7 g/dL (2.5-4.5) 03/04/19 05:23 Albumin/Globulin Ratio 0.8 Ratio (1.1-2.1) L 03/04/19 05:23 Specimen Type Catherized urine 03/01/19 05:05 Urine Color Straw (YELLOW) 03/01/19 05:05 Urine Appearance Clear (CLEAR) 03/01/19 05:05 Urine pH 5.0 (5.0 - 8.0) 03/01/19 05:05 Ur Specific [place] 1.015 (1.000-1.030) 03/01/19 05:05 Urine Protein 2+ (NEGATIVE) 03/01/19 05:05 Urine Glucose (UA) 4+ (NEGATIVE) 03/01/19 05:05 Urine Ketones 4+ (NEGATIVE) 03/01/19 05:05 Urine Occult Blood 1+ (NEGATIVE) 03/01/19 05:05 Urine Nitrite Negative (NEGATIVE) 03/01/19 05:05 Urine Bilirubin Negative (NEGATIVE) 03/01/19 05:05 Urine Urobilinogen Normal (NORMAL) 03/01/19 05:05 Ur Leukocyte Esterase Negative (NEGATIVE) 03/01/19 05:05 Urine RBC 0-2 /HPF (0-3) 03/01/19 05:05 Urine WBC None seen /HPF (0-5) 03/01/19 05:05 Ur Squamous Epith Cells Rare /HPF (NEGATIVE) 03/01/19 05:05 Urine Bacteria Negative /HPF (NEGATIVE) 03/01/19 05:05 Granular Casts Few /LPF (NEGATIVE) 02/28/19 14:49 Urine Mucus Few /HPF (NEGATIVE) 02/28/19 14:49 Ur Culture Indicated? No/not indicated 03/01/19 05:05 Acetone, Semi-Quant Small (NEGATIVE) H 03/01/19 00:03 Plan (1) DKA (diabetic ketoacidoses): Status: Acute Qualifiers: Diabetes mellitus complication detail: without coma Diabetes mellitus type: type 1 Qualified Code(s): E10.10 - Type 1 diabetes mellitus with ketoacidosis without coma Plan: Anion gap elevated again, Bicarb was 11 yesterday evening, now almost 15. Will give another bolus of IVF, continue close glucose monitoring. (2) Metabolic acidosis due to diabetes mellitus: Status: Acute Plan: Bicarb decreased yesterday, now slowly trending up continue IVF and insulin Lantus 25 units AM, SSI with meals (3) Hypokalemia: Status: Acute Plan: Continue PO K 40mEQ BID (4) Hypertension: Status: Acute Qualifiers: Hypertension type: essential hypertension Qualified Code(s): I10 - Esse ntial (primary) hypertension (5) Hypomagnesemia: Status: Acute Plan: replace as per protocol (6) Skin yeast infection: Status: Acute Plan: continue nystatin powder (7) Gastritis: Status: Acute Qualifiers: Gastritis type: unspecified gastritis Chronicity: chronic Gastritis bleeding: without bleeding Qualified Code(s): K29.50 - Unspecified chronic gastritis without bleeding Plan: continue PPI, will add Carafate
[2019-03-04] MEDS ORDERED: LANTUS SC SCH ×2 (09:00)
[2019-03-04] MEDS: EFFEXOR XR 150 MG CAP PO SCH (09:16)
[2019-03-04] MEDS: K-DUR TAB 20 MEQ PO SCH ×2 (09:17→21:35)
[2019-03-04] MEDS: PriLOSEC PO SCH (09:18)
[2019-03-04] MEDS: BUSPAR PO SCH ×2 (09:18→21:35)
[2019-03-04] MEDS: NYSTATIN POWDER TOP SCH ×2 (09:30→21:36)
[2019-03-04] MEDS: HumuLIN R SC PRN ×4 (09:41→21:37)
[2019-03-04] MEDS: ZOFRAN INJ 4 MG VIAL IVP PRN (11:31)
[2019-03-04] MEDS: CARAFATE ORAL SUSP PO SCH ×3 (11:31→21:36)
[2019-03-04] MEDS ORDERED: HumuLIN R SUBCUT ONE (19:30)
[2019-03-04 19:33] LABS: BLOOD UREA NITROGEN 6 mg/dL (7-18); CALCIUM 8.1 mg/dL (8.5-10.1); CHLORIDE 105 mmol/L (98-107); COR NA(FOR HYPERGLY) 142 mmol/L (136-145); CREATININE 0.73 mg/dL (0.55-1.02); SODIUM 137 mmol/L (136-145); eGFR NON BLACK RACES > 60 (>60)
[2019-03-04 19:34] LABS: CARBON DIOXIDE 11.3 mmol/L (21-32)
[2019-03-04 20:33] LABS: BLOOD UREA NITROGEN 5 mg/dL (7-18); CALCIUM 7.8 mg/dL (8.5-10.1); CHLORIDE 105 mmol/L (98-107); COR NA(FOR HYPERGLY) 142 mmol/L (136-145); CREATININE 0.82 mg/dL (0.55-1.02); SODIUM 136 mmol/L (136-145); eGFR NON BLACK RACES > 60 (>60)
[2019-03-04] MEDS ORDERED: MAALOX or MYLANTA PO PRN (20:39)
[2019-03-04] MEDS: SNACK - Diabetic Appropriate PO SCH (21:34)
[2019-03-04] MEDS: QUESTRAN POWDER FOR ORAL SUSP PO SCH (21:40)
[2019-03-04] MEDS ORDERED: HumaLOG SC ONE ×3 (23:07→23:14)
[2019-03-05] MEDS: NS 1000 ML 1,000 ML IV SCH ×6 (00:05→21:53)
[2019-03-05] MEDS ORDERED: HumaLOG SC ONE ×4 (01:15→03:15)
[2019-03-05 06:25] LABS: BASOPHILS # (AUTO) 0.1 X10^3/uL (0.0-0.1); BASOPHILS % (AUTO) 1.2 % (0.2-1.0); EOSINOPHILS # (AUTO) 0.2 x10^3/uL (0.0-0.2); EOSINOPHILS % (AUTO) 3.3 % (0.9-2.9); HEMATOCRIT 36.9 % (36.0-47.0); HEMOGLOBIN 12.4 g/dL (12.0-16.0); LYMPHOCYTES # (AUTO) 2.5 X10^3/uL (1.3-2.9); LYMPHOCYTES % (AUTO) 34.5 % (21.0-51.0); MEAN CORPUSCULAR HGB CONC 33.6 g/dL (33.0-35.0); MEAN CORPUSCULAR VOLUME 86.4 fL (80.0-100.0); MEAN PLATELET VOLUME 9.1 fL (7.4-11.0); MONOCYTES # (AUTO) 0.6 x10^3/uL (0.3-0.8); MONOCYTES % (AUTO) 7.8 % (0.0-13.0); NEUTROPHILS # (AUTO) 3.8 x10^3/uL (2.2-4.8); NEUTROPHILS % (AUTO) 53.2 % (42.0-75.0); PLATELET COUNT 289 X10^3/uL (150.0-450.0); RED BLOOD COUNT 4.27 X10^6/uL (3.5-5.4); WHITE BLOOD COUNT 7.2 X10^3/uL (3.6-10.0)
[2019-03-05] MEDS: CARAFATE ORAL SUSP PO SCH ×4 (06:29→21:51)
[2019-03-05 06:54] LABS: ALANINE AMINOTRANSFERASE 17 Units/L (12-78); ALBUMIN 3.2 g/dL (3.4-5.0); ALKALINE PHOSPHATASE 98 Units/L (46-116); ASPARTATE AMINO TRANSFERASE 8 Units/L (15-37); BLOOD UREA NITROGEN 4 mg/dL (7-18); CALCIUM 8.1 mg/dL (8.5-10.1); CARBON DIOXIDE 16.6 mmol/L (21-32); CHLORIDE 107 mmol/L (98-107); COR CA(FOR HYPOALB) 8.7 mg/dL (8.5-10.1); COR NA(FOR HYPERGLY) 143 mmol/L (136-145); CREATININE 0.65 mg/dL (0.55-1.02); SODIUM 140 mmol/L (136-145); TOTAL PROTEIN 6.9 g/dL (6.4-8.2); eGFR NON BLACK RACES > 60 (>60)
[2019-03-05] MEDS ORDERED: LANTUS SC SCH (09:00)
[2019-03-05] MEDS: HumuLIN R SC PRN ×3 (09:05→21:53)
[2019-03-05] MEDS: QUESTRAN POWDER FOR ORAL SUSP PO SCH ×2 (09:07→21:52)
[2019-03-05] MEDS: BUSPAR PO SCH ×2 (09:11→21:51)
[2019-03-05] MEDS: K-DUR TAB 20 MEQ PO SCH ×2 (09:11→21:51)
[2019-03-05] MEDS: PriLOSEC PO SCH (09:11)
[2019-03-05] MEDS: EFFEXOR XR 150 MG CAP PO SCH (09:12)
[2019-03-05] MEDS: NYSTATIN POWDER TOP SCH ×2 (09:12→21:52)
[2019-03-05 09:33] LABS: ABG BASE EXCESS -8.7 mmol/L (-2.0-2.0)
[2019-03-05] MEDS: ZOFRAN INJ 4 MG VIAL IVP PRN (11:33)
[2019-03-05] MEDS: TYLENOL 325 MG TAB PO PRN (11:34)
--- NOTE | 2019-03-05 13:31 | RAD ---
HISTORYNausea and vomiting and diarrhea and abdominal distentionSTUDYKUBCOMPARISONNoneFINDINGSThe bowel gas pattern is normal. There are cholecystectomy cl ips. There is no soft tissue calcification. There is no bony abnormality.IMPRESSIONNegativeElectronic ally signed by: KAITLIN FLOYD (Mar 05, 2019 13:29:45)
[2019-03-05] MEDS: NORCO 5/325 MG TAB PO PRN ×2 (14:47→21:54)
[2019-03-05 17:42] LABS: ALANINE AMINOTRANSFERASE 18 Units/L (12-78); ALBUMIN 3.3 g/dL (3.4-5.0); ALKALINE PHOSPHATASE 111 Units/L (46-116); ASPARTATE AMINO TRANSFERASE 9 Units/L (15-37); BLOOD UREA NITROGEN 8 mg/dL (7-18); CARBON DIOXIDE 17.3 mmol/L (21-32); CHLORIDE 103 mmol/L (98-107); COR CA(FOR HYPOALB) 8.6 mg/dL (8.5-10.1); COR NA(FOR HYPERGLY) 144 mmol/L (136-145); CREATININE 0.76 mg/dL (0.55-1.02); SODIUM 137 mmol/L (136-145); TOTAL PROTEIN 7.2 g/dL (6.4-8.2); eGFR NON BLACK RACES > 60 (>60)
[2019-03-05] MEDS ORDERED: SNACK - Diabetic Appropriate PO SCH (20:00)
[2019-03-05] MEDS: SNACK - Diabetic Appropriate PO SCH (21:51)
[2019-03-05] MEDS: LANTUS SC SCH (21:51)
[2019-03-06] MEDS: NS 1000 ML 1,000 ML IV SCH ×4 (01:00→17:45)
[2019-03-06] MEDS: NORCO 5/325 MG TAB PO PRN ×3 (04:03→21:10)
[2019-03-06] MEDS: CARAFATE ORAL SUSP PO SCH ×4 (06:35→21:07)
[2019-03-06] MEDS: HumuLIN R SC PRN ×4 (06:36→21:09)
[2019-03-06 06:49] LABS: BASOPHILS # (AUTO) 0.1 X10^3/uL (0.0-0.1); BASOPHILS % (AUTO) 1.1 % (0.2-1.0); EOSINOPHILS # (AUTO) 0.2 x10^3/uL (0.0-0.2); EOSINOPHILS % (AUTO) 3.5 % (0.9-2.9); HEMATOCRIT 36.2 % (36.0-47.0); LYMPHOCYTES # (AUTO) 2.8 X10^3/uL (1.3-2.9); LYMPHOCYTES % (AUTO) 39.3 % (21.0-51.0); MEAN CORPUSCULAR HEMOGLOBIN 28.4 pg (27.0-34.0); MEAN CORPUSCULAR HGB CONC 33.3 g/dL (33.0-35.0); MEAN CORPUSCULAR VOLUME 85.4 fL (80.0-100.0); MEAN PLATELET VOLUME 8.1 fL (7.4-11.0); MONOCYTES # (AUTO) 0.5 x10^3/uL (0.3-0.8); NEUTROPHILS # (AUTO) 3.5 x10^3/uL (2.2-4.8); NEUTROPHILS % (AUTO) 49.1 % (42.0-75.0); PLATELET COUNT 295 X10^3/uL (150.0-450.0); RED BLOOD COUNT 4.23 X10^6/uL (3.5-5.4); RED CELL DISTRIBUTION WIDTH 13.6 % (11.6-16.5); WHITE BLOOD COUNT 7.1 X10^3/uL (3.6-10.0)
[2019-03-06 07:15] LABS: ALANINE AMINOTRANSFERASE 17 Units/L (12-78); ALBUMIN 3.1 g/dL (3.4-5.0); ALKALINE PHOSPHATASE 106 Units/L (46-116); ASPARTATE AMINO TRANSFERASE 7 Units/L (15-37); BLOOD UREA NITROGEN 12 mg/dL (7-18); CALCIUM 8.3 mg/dL (8.5-10.1); CARBON DIOXIDE 20.6 mmol/L (21-32); CHLORIDE 105 mmol/L (98-107); COR NA(FOR HYPERGLY) 143 mmol/L (136-145); CREATININE 0.57 mg/dL (0.55-1.02); SODIUM 139 mmol/L (136-145); TOTAL PROTEIN 6.7 g/dL (6.4-8.2); eGFR NON BLACK RACES > 60 (>60)
[2019-03-06] MEDS: EFFEXOR XR 150 MG CAP PO SCH (09:40)
[2019-03-06] MEDS: BUSPAR PO SCH ×2 (09:40→21:07)
[2019-03-06] MEDS: K-DUR TAB 20 MEQ PO SCH ×2 (09:40→21:08)
[2019-03-06] MEDS: NYSTATIN POWDER TOP SCH ×2 (09:41→21:08)
[2019-03-06] MEDS: PriLOSEC PO SCH (09:41)
[2019-03-06] MEDS: LANTUS SC SCH ×2 (09:41→21:08)
[2019-03-06] MEDS: QUESTRAN POWDER FOR ORAL SUSP PO SCH ×2 (09:41→21:09)
[2019-03-06] MEDS: KLOR-CON PO PRN (09:43)
[2019-03-06] MEDS: MAGNESIUM SULFATE 1 GRAM/100 mL PREMIX 1 GM/100 ML BAG IV PRN ×2 (12:37→15:05)
[2019-03-06] MEDS: TYLENOL 325 MG TAB PO PRN (13:30)
[2019-03-06] MEDS: SNACK - Diabetic Appropriate PO SCH (21:07)
[2019-03-07] MEDS: NS 1000 ML 1,000 ML IV SCH ×2 (00:25→06:09)
[2019-03-07] MEDS: HumuLIN R SC PRN ×3 (00:26→12:23)
[2019-03-07] MEDS: NORCO 5/325 MG TAB PO PRN ×2 (03:23→09:06)
[2019-03-07 06:05] LABS: ALANINE AMINOTRANSFERASE 17 Units/L (12-78); ALKALINE PHOSPHATASE 94 Units/L (46-116); ASPARTATE AMINO TRANSFERASE 11 Units/L (15-37); BASOPHILS # (AUTO) 0.1 X10^3/uL (0.0-0.1); BASOPHILS % (AUTO) 1.1 % (0.2-1.0); BLOOD UREA NITROGEN 7 mg/dL (7-18); CALCIUM 7.9 mg/dL (8.5-10.1); CARBON DIOXIDE 23.8 mmol/L (21-32); CHLORIDE 104 mmol/L (98-107); COR CA(FOR HYPOALB) 8.7 mg/dL (8.5-10.1); COR NA(FOR HYPERGLY) 142 mmol/L (136-145); EOSINOPHILS # (AUTO) 0.2 x10^3/uL (0.0-0.2); EOSINOPHILS % (AUTO) 2.9 % (0.9-2.9); HEMATOCRIT 35.3 % (36.0-47.0); HEMOGLOBIN 11.7 g/dL (12.0-16.0); LYMPHOCYTES % (AUTO) 39.8 % (21.0-51.0); MEAN CORPUSCULAR HEMOGLOBIN 28.4 pg (27.0-34.0); MEAN CORPUSCULAR HGB CONC 33.2 g/dL (33.0-35.0); MEAN CORPUSCULAR VOLUME 85.6 fL (80.0-100.0); MEAN PLATELET VOLUME 9.4 fL (7.4-11.0); MONOCYTES # (AUTO) 0.5 x10^3/uL (0.3-0.8); MONOCYTES % (AUTO) 6.4 % (0.0-13.0); NEUTROPHILS # (AUTO) 3.7 x10^3/uL (2.2-4.8); NEUTROPHILS % (AUTO) 49.8 % (42.0-75.0); PLATELET COUNT 306 X10^3/uL (150.0-450.0); RED BLOOD COUNT 4.12 X10^6/uL (3.5-5.4); RED CELL DISTRIBUTION WIDTH 13.7 % (11.6-16.5); SODIUM 139 mmol/L (136-145); TOTAL PROTEIN 6.4 g/dL (6.4-8.2); WHITE BLOOD COUNT 7.5 X10^3/uL (3.6-10.0); eGFR NON BLACK RACES > 60 (>60)
[2019-03-07] MEDS: CARAFATE ORAL SUSP PO SCH ×2 (06:08→12:22)
[2019-03-07] MEDS: KLOR-CON PO PRN (06:38)
[2019-03-07] MEDS: LANTUS SC SCH (09:04)
[2019-03-07] MEDS: K-DUR TAB 20 MEQ PO SCH (09:05)
[2019-03-07] MEDS: EFFEXOR XR 150 MG CAP PO SCH (09:05)
[2019-03-07] MEDS: PriLOSEC PO SCH (09:05)
[2019-03-07] MEDS: BUSPAR PO SCH (09:05)
[2019-03-07] MEDS: QUESTRAN POWDER FOR ORAL SUSP PO SCH (09:05)
[2019-03-07] MEDS: MAGNESIUM SULFATE 1 GRAM/100 mL PREMIX 1 GM/100 ML BAG IV PRN ×2 (09:07→12:06)
[2019-03-07] MEDS: NYSTATIN POWDER TOP SCH (09:08)
[2019-03-07 12:18] VITALS: BP 139/100
== END 2019-03-07 14:25 | disposition home or self-care (01) | DRG 639 ==
LOC: ER 13:00 → ICU 22:42 → MED/SURG 03-03 15:48
PROVIDERS: ADMIT Family Medicine; ATTEND Family Medicine
DX: E87.6 Hypokalemia; R51 Headache; I10 Essential (primary) hypertension; K29.50 Unspecified chronic gastritis without bleeding; E10.10 Type 1 diabetes mellitus with ketoacidosis without coma; R94.31 Abnormal electrocardiogram [ECG] [EKG]; B37.2 Candidiasis of skin and nail; E83.2 Disorders of zinc metabolism
CPT/HCPCS: 36415; 36600; 51702; 71010; 71045; 74000; 74018; 80048; 80053; 81001; 82009; 82270; 82550; 82553; 82803; 83036; 83605; 83630; 83735; 84132; 84484; 85025; 87040; 87045; 87086; 87338; 87427; 87449; 87493; 87899; 93005; 96365; 96367; 96374; 96375; 99285; A4222; J1815; J1817; J1885; J2270; J2405; J3475; J3480; J3490; J7030; J7050; S5010